=== PATIENT | female | born 1945 | race Caucasian/White ===

== ENCOUNTER 2020-01-06 09:47 | Emergency (ER) | payer OTHER, SELFPAY ==
--- NOTE | ~2020-01-06 | XR_ITS ---
EXAMINATION: XR chest 2V DATE: 01/06/2020 10:16 INDICATION: Chest pain with deep inspiration TECHNIQUE: PA and lateral views of the chest are obtained. COMPARISON: 12/04/2003 FINDINGS: The lungs are free of focal airspace opacities. There is subsegmental atelectasis in the li ngula. There is no pleural effusion or pneumothorax. The heart size is normal. A pretracheal calcific ation on the lateral view likely represents old granulomatous disease. There is moderate thoracic spo ndylosis. Biopsy markers are noted in the breasts. Surgical clips in the right upper quadrant are lik sara from prior cholecystectomy. IMPRESSION: 1. No acute cardiopulmonary abnormality. Reviewed, dictated and finalized at location B.
[2020-01-06 10:01] VITALS: BP 134/72; PULSE 69; RESP 16; TEMP 36.9; O2SAT 98
--- NOTE | 2020-01-06 10:17 | ED.URI ---
HPI - URI/Sore Throat General Chief Complaint: Upper Respiratory Infection Stated Complaint: upper respiratory infection Time Seen by Provider: 01/06/20 10:18 Source: patient, RN notes reviewed and old records reviewed Mode of arrival: ambulatory Limitations: no limitations History of Present Illness HPI Narrative: 74 year old female presents to [facility] care with complaints of headache, cough with expectoration of yellow tingled mucous, sinus drainage and pressure for the past 10 days. Patient states that she has some left lateral chest discomfort with deep inspiration and with coughing. Patient states that she just recently completed prednisone taper for poison awilda and she has been taking Robitussin cough medication and using cough drops. Patient denies any acute shortness of breath does have long history of tobacco abuse. MD elicited complaint: cough, sinus pain and other Pertinent past history: other (tobaco abuse) Onset (ago): week(s) (05/01) Consistency: intermittent Severity: moderate Description of mucous: yellow Able to tolerate fluids by mouth: Yes Exacerbating factors: exertion Relieving factors: other (cough medication) Associated symptoms: headache and cough Treatments prior to arrival: other (just completed steroid for poison awilda, cough medicine) Related Data Home Medications Medication Instructions Recorded Confirmed sertraline mg 01/06/20 Allergies Allergy/AdvReac Type Severity Reaction Status Date / Time No Known Allergies Allergy Unverified 02/07/16 13:04 Review of Systems Review of Systems: Narrative: CONSTITUTIONAL: Denies fever, chills, or sweats. EYES: Denies visual changes, redness, or discharge. ENT: Positive rhinorrhea, congestion, some sore throat, no otalgia. CARDIOVASCULAR: left lateral chest pain with cough and deep inspiration,no palpitations, or edema. RESPIRATORY: Positive cough denies dyspnea. GASTROINTESTINAL: Denies abdominal pain, nausea, vomiting, or diarrhea. GENITOURINARY: Denies dysuria or hematuria. SKIN: Denies rash or itching. MUSCULOSKELETAL: Denies back pain, joint pain, or myalgia. NEUROLOGIC: positive headache, no numbness, or weakness. PSYCHIATRIC: history of anxiety or depression. All systems reviewed & are unremarkable except as noted in HPI and below PMFSH Past Medical History Medical History (Updated 01/06/20 @ 10:49 by Katelin Gray NP) Arthritis Depression Diverticulosis GERD (gastroesophageal reflux disease) Hemorrhoids Surgical History Surgical History (Updated 01/06/20 @ 10:24 by Katelin Gray NP) History of surgical removal of skin lesion History of tubal ligation Hx of breast biopsy Hx of cataract removal with insertion of prosthetic lens Hx of cholecystectomy Social History Social History (Updated 01/06/20 @ 10:46 by Katelin Gray NP) Smoking status: Current every day smoker Living arrangements: with family Gender identity (if verbalized by the patient): Female Comments At time of signature, agree with nursing past medical, surgical, social history. There is no relevant family history pertinent to the presenting complaint Exam Narrative: Exam Narrative: GENERAL: Well-appearing, well-nourished, and in no acute distress. HEAD: Normocephalic, atraumatic. EYES: PERRLA and EOMI. ENT: Nares red, rhinorrhea no epistaxis. facial pressure and frontal headache. Mucous membranes moist.TM's normal with good light reflex, throat pink with post nasal drainage noted, no tonsil enlargement or exudates noted. NECK: Supple.no lymphadenopathy CHEST: Clear decreased to auscultation. No respiratory distress.SAO2 98% on room air occasional productive cough yellow mucous HEART: Regular rate and rhythm. No murmur heard. Normal peripheral pulses. ABDOMEN: Soft, nontender, nondistended, normal active bowel sounds. EXTREMITIES: Normal range of motion. No edema. SKIN: Warm, dry, no rash. NEURO: No focal deficits. Alert and oriented x3. Course
== END 2020-01-06 10:57 | disposition home or self-care (01) ==
PROVIDERS: Emergency Provider Registered Nurse; PCP Family Medicine Adolescent Medicine
DX: J06.9 Acute upper respiratory infection, unspecified (principal); J01.40 Acute pansinusitis, unspecified; M19.90 Unspecified osteoarthritis, unspecified site; F32.9 Major depressive disorder, single episode, unspecified; K21.9 Gastro-esophageal reflux disease without esophagitis
CPT/HCPCS: 71046; 99203; G0463

== ENCOUNTER 2021-02-07 01:10 | Day surgery (SDC) | payer OTHER, SELFPAY ==
[2021-01-21 14:04] VITALS: BMI 22.7
--- NOTE | 2021-02-04 15:57 | PM.HPGS ---
History of Present Illness History of Present Illness Consent: Risks, benefits, and alternatives have been discussed and questions answered. Patient agrees to proceed with procedure. Chief complaint: hx of colon polyps Narrative: Ilana Ayers is a 75 year old female referred for colon cancer screening. She has a history of polyps. Her last colonoscopy was 5 years ago Review of Systems Review of Systems: All systems reviewed & are unremarkable except as noted in HPI and below PMFSH Past Medical History Medical History Arthritis Depression Diverticulosis GERD (gastroesophageal reflux disease) Hemorrhoids Surgical History Surgical History History of surgical removal of skin lesion History of tubal ligation Hx of breast biopsy Hx of cataract removal with insertion of prosthetic lens Hx of cholecystectomy Social History Social History Smoking packs per day: 0.5 Smoking cigarettes per day: 10.0 Years smoked: 40 Smoking pack-years: 20.00 Smoking status: Light tobacco smoker Tobacco type: cigarettes Additional smoking assessment comments: has decreased to 0.5 pack per day Alcohol intake: current Drinks per week: 1 Alcohol use details: occasional Substance use: never Substance use type: does not use Living arrangements: with family Additional living arrangements comments: Son lives with her Gender identity (if verbalized by the patient): Female Spiritual care concerns: No Meds Home Medications and Allergies Home Medications Medication Instructions Recorded Confirmed Type sertraline 50 mg PO DAILY 01/06/20 02/07/21 History multivitamin with minerals [All 1 tablet PO DAILY 01/21/21 02/07/21 History Purpose Multivitamin-Min] Allergies Allergy/AdvReac Type Severity Reaction Status Date / Time No Known Allergies Allergy Verified 02/07/21 09:23 Exam Resp: Auscultation: clear to auscultation bilaterally Cardio: Rate: regular rate Rhythm: regular rhythm GI: GI Palp: Yes Soft to palpation and No Tenderness to palpation present (GI) Assessment and Plan Assessment and plan (1) Colon cancer screening: Code(s): Z12.11 - Encounter for screening for malignant neoplasm of colon Status: Acute Assessment and Plan: Colonoscopy with possible biopsy or polypectomy or cautery or injection of substances.
[2021-02-07 09:24] VITALS: BP 146/61; PULSE 65; RESP 17; TEMP 36.1; O2SAT 98; BMI 21.0
[2021-02-07] MEDS: LACTATED RINGERS 1,000 ML 150 ML IV CONT (09:28)
--- NOTE | 2021-02-07 09:28 | P.PNAN_ITS ---
Anes - Initial Pre Proc Eval Procedure: Operation Date: 02/07/21 10:30 Proposed Procedures p Screening Colonoscopy - Carmelo Morelos MD Date/Time: 02/07/21 09:28 Surgeon: Carmelo Morelos MD Pre Op Diagnosis: hx of colon polyps Patient Data Age: 75 Gender: F Height: 1.57 m Weight: 52.2 kg Last Vital Signs Temp 36.1 C L 02/07/21 09:24 Pulse 65 02/07/21 09:24 Resp 17 02/07/21 09:24 BP 146/61 H 02/07/21 09:24 Pulse Ox 98 02/07/21 09:24 Allergies Allergy/AdvReac Type Severity Reaction Status Date / Time No Known Allergies Allergy Verified 02/07/21 09:23 Home Medications Medication Instructions Recorded Confirmed Type sertraline 50 mg PO DAILY 01/06/20 02/07/21 History multivitamin with minerals [All 1 tablet PO DAILY 01/21/21 02/07/21 History Purpose Multivitamin-Min] Patient hx anesthesia problems: none Family hx anesthesia problems: none Results Review: All pre-operative results and documents have been reviewed as part of the pre-operative evaluation. [facility] Past Medical History Medical History Arthritis Depression Diverticulosis GERD (gastroesophageal reflux disease) Hemorrhoids Surgical History Surgical History History of surgical removal of skin lesion History of tubal ligation Hx of breast biopsy Hx of cataract removal with insertion of prosthetic lens Hx of cholecystectomy Social History Social History Smoking packs per day: 0.5 Smoking cigarettes per day: 10.0 Years smoked: 40 Smoking pack-years: 20.00 Smoking status: Light tobacco smoker Tobacco type: cigarettes Additional smoking assessment comments: has decreased to 0.5 pack per day Alcohol intake: current Drinks per week: 1 Alcohol use details: occasional Substance use: never Substance use type: does not use Living arrangements: with family Additional living arrangements comments: Son lives with her Gender identity (if verbalized by the patient): Female Spiritual care concerns: No Anes - Eval Final PreProcedure Day of Procedure 02/07/21 09:28 Patient weight: normal Heart: regular rate and rhythm Lungs: decreased breath sounds Airway: Mallampati scale class II Neurological: alert and oriented Last oral intake: >/= 8 hours ASA classification: III Emergent: no Anesthetic plan: proceed Anesthesia type and monitoring: general GIVS and standard monitoring Results Review: All pre-operative results and documents have been reviewed as part of the pre-operative evaluation. Informed Consent: The patient's anesthetic plan and its attendant risks and benefits were discussed with the patient/family/POA. Questions were solicited and answers provided to the satisfaction of the patient/family/POA.
[2021-02-07 10:20] VITALS: BP 99/54; PULSE 65; RESP 19; O2SAT 94
[2021-02-07 10:30] VITALS: BP 98/53; PULSE 59; RESP 23; O2SAT 94
[2021-02-07 10:40] VITALS: BP 124/63; PULSE 53; RESP 23; O2SAT 97
== END 2021-02-07 10:49 | disposition home or self-care (01) ==
PROVIDERS: PCP Family Medicine Adolescent Medicine; Visit Provider Internal Medicine Gastroenterology
PROC: 0DJD8ZZ Inspection of Lower Intestinal Tract, Via Natural or Artificial Opening Endoscopic (ICD-10-PCS; CPT 45378; principal; 2021-02-07 10:30)
DX: Z12.11 Encounter for screening for malignant neoplasm of colon (principal); Z86.010 Personal history of colon polyps; K57.30 Diverticulosis of large intestine without perforation or abscess without bleeding; M19.90 Unspecified osteoarthritis, unspecified site; F32.9 Major depressive disorder, single episode, unspecified; K21.9 Gastro-esophageal reflux disease without esophagitis; Z87.891 Personal history of nicotine dependence
CPT/HCPCS: G0105; J2001; J2704; J7120

== ENCOUNTER → 2022-03-21 12:20 | Outpatient (CLI) | payer OTHER, SELFPAY ==
--- NOTE | ~2022-03-21 | MM_ITS ---
EXAMINATION: MM screening josette BI w sendy HISTORY: Screening mammogram TECHNIQUE: Craniocaudal and mediolateral oblique 3-D tomosynthesis images were obtained and synthetic 2-D images were generated. CAD analysis was submitted and interpreted. COMPARISON: 12/20/2015 bilateral screening mammogram BREAST PARENCHYMAL COMPOSITION: The breasts are heterogeneously dense, which may obscure small masses . FINDINGS: Right breast: There is no evidence of suspicious mass, calcification, or architectural dist ortion to suggest malignancy in the right breast. There has been no suspicious interval change. There is a biopsy marker on the right; history of prior benign right breast biopsy Left breast: New asymmetric density in the posterior inner left breast on CC view. Diagnostic left ma mmogram is recommended, with ultrasound if required. There is a biopsy marker on the left; history of prior benign left breast biopsy. IMPRESSION: 1. New asymmetric density in posterior inner left breast on screening CC view 2. Diagnostic left mammogram is recommended, with ultrasound if required BI-RADS Category 0: Incomplete: Needs additional imaging evaluation. Reviewed, dictated and finalized at location A. ERCIAL PLUMBER
== END ==
PROVIDERS: PCP Family Medicine Adolescent Medicine; Visit Provider Family Medicine Adolescent Medicine
DX: Z12.31 Encounter for screening mammogram for malignant neoplasm of breast (principal); R92.8 Other abnormal and inconclusive findings on diagnostic imaging of breast
CPT/HCPCS: 77063; 77067

== ENCOUNTER → 2022-04-13 09:11 | Outpatient (CLI) | payer OTHER, SELFPAY ==
--- NOTE | ~2022-04-13 | MMUS_ITS ---
EXAMINATION: MM diagnostic josette LT w sendy, US breast LT limited HISTORY: Follow-up left breast asymmetry TECHNIQUE: Additional 3-D tomosynthesis images of the left breast were performed and synthetic 2-D im ages were generated. CAD analysis was submitted and interpreted. High resolution Limited left breast ultrasound was performed. COMPARISON: Comparison to multiple prior studies sequentially, with oldest reviewed study dated 12/19. BREAST PARENCHYMAL COMPOSITION: Breast composed of scattered areas of fibroglandular density FINDINGS: MAMMOGRAPHIC FINDINGS: There are no suspicious masses, calcifications or architectural distortion in the left breast to sugg est malignancy. ULTRASOUND: Limited left breast ultrasound: At 9:00, 5 cm from the nipple, there is a minimally complicated 4 mm cyst. At 8:00, 1 cm from the nipple there is a 2 mm cyst. No suspicious masses to suggest malignancy. IMPRESSION: 1. No evidence for malignancy in the left breast. 2. Routine yearly screening mammogram and regular clinical breast examination are recommended. BI-RADS Category 2: Benign finding(s). Reviewed, dictated and finalized at location B. SYSTEMS ANALYST IMPRESSION: 1. No evidence for malignancy in the left breast. 2. Routine yearly screening mammogram and regular clinical breast examination a re recommended. BI-RADS Category 2: Benign finding(s).
== END ==
PROVIDERS: PCP Family Medicine Adolescent Medicine; Visit Provider Family Medicine Adolescent Medicine
DX: R92.8 Other abnormal and inconclusive findings on diagnostic imaging of breast (principal)
CPT/HCPCS: 76642; 77061; 77065; G0279

== ENCOUNTER → 2023-05-08 13:59 | Outpatient (CLI) | payer OTHER, SELFPAY ==
--- NOTE | ~2023-05-08 | MM_ITS ---
EXAMINATION: MM screening [facility] BI w sendy HISTORY: Screening mammogram TECHNIQUE: Craniocaudal and mediolateral oblique 3-D tomosynthesis images were obtained and synthetic 2-D images were generated. CAD analysis was submitted and interpreted. COMPARISON: 04/13/2022, 03/21/2022, 12/20/2015 BREAST PARENCHYMAL COMPOSITION: The breasts are heterogeneously dense, which may obscure small masses . FINDINGS: No suspicious mass, calcification, or architectural distortion are identified in either espinoza ast to suggest malignancy. There has been no suspicious interval change. IMPRESSION: 1. No mammographic evidence of malignancy. 2. Recommend routine screening mammography in one year. BI-RADS Category 1: Negative Reviewed, dictated and finalized at location A. ADVISER
== END ==
PROVIDERS: PCP Family Medicine Adolescent Medicine; Visit Provider Family Medicine Adolescent Medicine
DX: Z12.31 Encounter for screening mammogram for malignant neoplasm of breast (principal)
CPT/HCPCS: 77063; 77067

== ENCOUNTER 2024-01-01 12:05 | Emergency (ER) | payer OTHER, SELFPAY ==
[2024-01-01 12:40] VITALS: BP 184/77; PULSE 65; RESP 16; TEMP 36.5; O2SAT 100
--- NOTE | 2024-01-01 13:11 | ED.GENADULT ---
HPI - General Adult General Chief complaint: Extremity Injury, Lower Stated complaint: Right leg pain Time Seen by Provider: 01/01/24 13:11 Source: patient, RN notes reviewed and old records reviewed Mode of arrival: ambulatory Limitations: no limitations History of Present Illness HPI narrative: 70-year-old female to [facility] complaints of right anterior lower leg pain for 2 weeks. Patient reports falling in her yd in hitting her right rushing on a metal plant stand. Patient states that she initially noticed a small black piece of which she believes was metal sticking out of her skin after a fall. Patient reports removing the foreign body without difficulty. Patient has been keeping area clean and dry. Patient states that area appears to be improving but wanted to be certain that continued swelling and bruising was normal. Patient denies numbness, tingling, weakness, joint pain, fever. Patient is uncomfortable in no acute distress. Respirations even and nonlabored. Related Data Home Medications Medication Instructions Recorded Confirmed calcium citrate 315 mg 1 tablet PO DAILY 11/15/21 01/01/24 calcium-vitamin D3 6.25 mcg (250 unit) tablet vitamin B complex (B 1 tablet PO DAILY 12/27/22 01/01/24 Complex-Vitamin B12 tablet) Allergies Allergy/AdvReac Type Severity Reaction Status Date / Time No Known Allergies Allergy Verified 09/07/23 08:36 Review of Systems Review of Systems: All systems reviewed & are unremarkable except as noted in HPI and below Constitutional: Constitutional: Reports no additional constitutional complaints Eyes: Eyes: Reports no additional eye complaints ENT: Reports system reviewed and no additional complaints, except as documented Cardiovascular: Cardiovascular: Reports no additional cardiovascular complaints, Denies chest pain and Denies dyspnea Respiratory: Respiratory: Reports no additional respiratory complaints, Denies cough and Denies dyspnea Musculoskeletal: Musculoskeletal: Reports no additional musculoskeletal complaints Neurologic: Reports system reviewed and no additional complaints, except as documented Psychiatric: Psychiatric: Reports no additional psychiatric complaints [facility] Past Medical History Medical History Arthritis Degenerative joint disease of knee Depression Diverticulosis GERD (gastroesophageal reflux disease) Hemorrhoids History of colon polyps Right knee pain Surgical History Surgical History History of surgical removal of skin lesion History of tubal ligation Hx of breast biopsy Hx of cataract removal with insertion of prosthetic lens Hx of cholecystectomy (1997) Family History Family History Sibling Pancreatic cancer Social History Social History Smoking packs per day: 0.5 Smoking cigarettes per day: 10.0 Years smoked: 40 Smoking pack-years: 20.00 Smoking status: Current every day smoker Tobacco type: cigarettes Second hand tobacco smoke exposure: No Additional smoking assessment comments: has decreased to 0.5 pack per day Alcohol intake: current Drinks per week: 1 Alcohol use details: occasional Substance use: never Substance use type: does not use Living arrangements: with family Additional living arrangements comments: Son lives with her Occupation/Education: retired Gender identity (if verbalized by the patient): Female Spiritual care concerns: No Comments At the time of my signature, I reviewed and agree with the nursing past medical, surgical, social, and family history. There is no relevant family history pertinent to the patient complaint. Exam Const: General: cooperative, healthy appearing, comfortable, no acute distress, alert and well nourished Nutritional Appearance: well
[2024-01-01] MEDS: TETANUS,DIPHTHERIA,AC PERTUSSIS ADULT (0.5 ML) BOOSTRIX IM (13:41)
== END 2024-01-01 14:03 | disposition home or self-care (01) ==
PROVIDERS: Emergency Provider Nurse Practitioner Family; PCP Family Medicine Adolescent Medicine
DX: S80.11XA Contusion of right lower leg, initial encounter (principal); W19.XXXA Unspecified fall, initial encounter; L03.115 Cellulitis of right lower limb; Z23 Encounter for immunization; F17.210 Nicotine dependence, cigarettes, uncomplicated; M19.90 Unspecified osteoarthritis, unspecified site; K21.9 Gastro-esophageal reflux disease without esophagitis; Z96.1 Presence of intraocular lens; Z98.49 Cataract extraction status, unspecified eye
CPT/HCPCS: 90471; 90715; 99213; G0463